=== PATIENT | female | born 1945 | race Caucasian/White ===

== ENCOUNTER → 2016-10-21 | Outpatient (CLI) | payer MEDICARE, OTHER ==
[~2016-10-21] MED LIST: ALPR0.5T6 PO; BIMA2.5D EACHEYE; CALCIUM PO; LACT1CAP37 PO; MAGNESIUM MALATE PO; OMEG1CAP6 PO; PANT40TA5 PO; PROG100C4 PO; TIMO5DRO5 EACHEYE; UBID100C19 PO; VITAMIN D3 PO
[2016-10-21 12:20] LABS: HEMOGLOBIN 15.8 g/dL (11.7-16.4)
[2016-10-21 12:21] LABS: BLOOD UREA NITROGEN 12 mg/dL (7-18)
[2016-10-21 12:30] LABS: PATH.CAST-FLAG NOT PRESENT; SPERM-FLAG NOT PRESENT; SRC-FLAG NOT PRESENT; XTAL-FLAG NOT PRESENT; YLC-FLAG NOT PRESENT
== END | disposition home or self-care (01) ==
LOC: STAR 10:42
PROVIDERS: ATTEND Obstetrics & Gynecology Gynecology
DX: Z01.818 Encounter for other preprocedural examination (principal); N81.4 Uterovaginal prolapse, unspecified; N81.10 Cystocele, unspecified; N81.6 Rectocele
CPT/HCPCS: 36415; 71020; 80048; 81001; 85025; 93005

== ENCOUNTER 2016-10-26 05:54 | Observation (INO) | payer MEDICARE, OTHER ==
[~2016-10-26] VITALS: Ht 167.6 cm; Wt 64.7 kg
[2016-10-26] MEDS ORDERED: ESTROGENS CONJUGATED VAG CRM 0.625MG/1G, 30GM ONE (06:59)
[2016-10-26] MEDS ORDERED: FLUORESCEIN SODIUM 500 MG/5 ML ONE (06:59)
[2016-10-26] MEDS ORDERED: NEOMY/POLYMYXIN B GU IRR. 1 ML IRRIG ONE (06:59)
[2016-10-26] MEDS ORDERED: FENTANYL PF 250 MCG/5ML ONE (07:00)
[2016-10-26] MEDS ORDERED: THROMBIN 5,000 UNIT VIAL TP ONE (07:05)
[2016-10-26] MEDS ORDERED: LACTATED RINGERS 1,000 ML IV SCH (07:09)
[2016-10-26] MEDS ORDERED: FENTANYL PF 100 MCG/2ML IV PRN (07:30)
[2016-10-26] MEDS ORDERED: CEFAZOLIN 1,000 MG ONE (07:30)
[2016-10-26] MEDS ORDERED: KETOROLAC 30 MG/1 ML ONE (07:30)
[2016-10-26] MEDS ORDERED: DEXAMETHASONE 4 MG/ML, 1ML ONE (07:30)
[2016-10-26] MEDS ORDERED: PROMETHAZINE 25 MG/ML, 1ML IV PRN (07:30)
[2016-10-26] MEDS ORDERED: ACETAMINOPHEN 325 MG TABLET PO PRN (07:30)
[2016-10-26] MEDS ORDERED: MIDAZOLAM 1 MG/ML, 2ML IV PRN (07:30)
[2016-10-26] MEDS ORDERED: PROPOFOL 10 MG/ML, 20ML ONE (07:30)
[2016-10-26] MEDS ORDERED: HYDROcodone/APAP 7.5-325MG/15ML UDC PO PRN (07:30)
[2016-10-26] MEDS ORDERED: HYDROmorphone 1 MG/ML, 1ML IV PRN (07:30)
[2016-10-26] MEDS ORDERED: ONDANSETRON 2MG/ML, 2ML IVPush PRN ×2 (07:30→17:30)
[2016-10-26] MEDS ORDERED: ONDANSETRON 2MG/ML, 2ML ONE (07:30)
[2016-10-26] MEDS ORDERED: LIDOCAINE/PF 1%-EPI 1:200K, 30 ML INFIL ONE (07:53)
[2016-10-26] MEDS ORDERED: FUROSEMIDE 20 MG/2 ML ONE (08:15)
[2016-10-26] MEDS ORDERED: ACETAMINOPHEN 325 MG TABLET ONE (09:19)
[2016-10-26] MEDS ORDERED: DIPHENHYDRAMINE 50 MG/ML, 1ML IVPush PRN (11:00)
[2016-10-26] MEDS: KETOROLAC 30 MG/1 ML IVPush PRN ×2 (14:34→20:21)
[2016-10-26 19:35] VITALS: BP 135/73
[2016-10-27 00:41] VITALS: BP_SYST 106; BP_SYST 116; BP_DIAS 49; BP_DIAS 53
[2016-10-27 08:00] VITALS: BP 120/45
[2016-10-27] MEDS ORDERED: HYDR-882 PO (09:37)
[2016-10-27] MEDS ORDERED: ONDA4TAB7 PO (09:37)
== END 2016-10-27 09:53 | disposition home or self-care (01) ==
LOC: OUT 05:54 → ORIP 16:37 → 4NOR 18:30 → DCLOUNGE 10-27 09:29
PROVIDERS: ADMIT Obstetrics & Gynecology Gynecology; ATTEND Obstetrics & Gynecology Gynecology
DX: N81.3 Complete uterovaginal prolapse (principal)
CPT/HCPCS: 36415; 57260; 58260; 85014; 88307; 96372; G0378; J0690; J1100; J1885; J1940; J2405; J2704; J3010; J7120; J3490